=== PATIENT | female | born 1960 | race Caucasian/White ===

== ENCOUNTER 2020-12-23 09:06 | Emergency (ER) | payer MEDICARE, OTHER ==
[2020-12-23 09:27] VITALS: BP 126/78; PULSE 58
--- NOTE | 2020-12-23 10:12 | EDM.PDOC ---
ED HPI GENERAL MEDICAL PROBLEM - General Chief Complaint: Upper Extremity Injury/Pain Stated Complaint: RIGHT HAND FINGER INJURY Time Seen by Provider: 12/23/20 09:45 Source of Information: Reports: Patient History Limitations: Reports: No Limitations - History of Present Illness INITIAL COMMENTS - FREE TEXT/NARRATIVE: patient presented to the ER with a c/o right middle finger pain. started yesterday after she tried to '' flick '' a food crumb. no specific injury or trauma. no fever or chills. no similar pain in the past. she tried Tylenol with minimal relief. Onset: Sudden Duration: Hour(s): (14) Location: Reports: Upper Extremity, Right Quality: Reports: Ache Severity: Mild Treatments FILTER WASHER: Reports: Acetaminophen Right Middle Finger-Middle Pain Score (Numeric/FACES): 2 - Related Data Allergies Allergy/AdvReac Type Severity Reaction Status Date / Time lisinopril Allergy Headache Verified 12/23/20 09:28 Home Meds: Home Meds Estradiol 0.5 mg PO DAILY 10/30/14 [History] Metoprolol Succinate [Toprol XL] 50 mg PO DAILY 10/30/14 [History] Simvastatin [Zocor] 40 mg PO BEDTIME 10/30/14 [History] Venlafaxine HCl [Venlafaxine ER] 75 mg PO BEDTIME 10/30/14 [History] Losartan [Cozaar] 12/23/20 [History] Past Medical History Cardiovascular History: Reports: High Cholesterol, Hypertension Genitourinary History: Reports: None Psychiatric History: Reports: Anxiety, Depression - Past Surgical History HEENT Surgical History: Reports: Adenoidectomy, Tonsillectomy Cardiovascular Surgical History: Reports: None Female Surgical History: Reports: Breast Reduction, Hysterectomy, Tubal Ligation Other Female Surgeries/Procedures: reduction mammoplasty Musculoskeletal Surgical History: Reports: Carpal Tunnel, Knee Replacement Other Musculoskeletal Surgeries/Procedures:: right carpal tunnel Review of Systems - Review of Systems Review Of Systems: See Below Constitutional: Reports: No Symptoms Eyes: Reports: No Symptoms Nose: Reports: No Symptoms Respiratory: Reports: No Symptoms Cardiovascular: Reports: No Symptoms Musculoskeletal: Reports: No Symptoms Skin: Reports: No Symptoms ED EXAM, GENERAL - Physical Exam Exam: See Below Exam Limited By: No Limitations General Appearance: Alert, WD/WN, No Apparent Distress Eye Exam: Bilateral Eye: PERRL Respiratory/Chest: No Respiratory Distress Cardiovascular: Normal Peripheral Pulses, Regular Rate, Rhythm Extremities: Other (right middle finger knuckle - mild swelling/erythema. minimal TTP. no e/o infection. ) Neurological: Alert, Oriented Course - Vital Signs Last Recorded V/S: Last Vital Signs Temp 36.2 C 12/23/20 09:22 Pulse 58 L 12/23/20 09:22 Resp 18 12/23/20 09:22 BP 126/78 12/23/20 09:22 Pulse Ox 97 12/23/20 09:22 - Orders/Labs/Meds Orders: Active Orders 24 hr Category Date Time Status Hand Comp Min 3V Rt [CR] Stat Exams 12/23/20 09:36 Taken Ketorolac [Toradol] Med 12/23/20 10:06 Once 60 mg IM ONETIME ONE - Re-Assessments/Exams Free Text/Narrative Re-Assessment/Exam: xrays - no fracture or dislocation probably tendonitis Departure - Departure Time of Disposition: 10:10 Disposition: Home, Self-Care 01 Condition: Good Clinical Impression: Arthritis of finger - Discharge Information *PRESCRIPTION DRUG MONITORING PROGRAM REVIEWED*: Not Applicable *COPY OF PRESCRIPTION DRUG MONITORING REPORT IN PATIENT ZAC: Not Applicable Instructions: Arthritis, [id number], Tendinitis, [id number] Referrals: Rosalina Lal [employer] [employer] [Primary Care Provider] - Forms: ED Department Discharge Sepsis Event Note (ED) - Evaluation Sepsis Screening Result: No Definite Risk - Focused Exam Vital Signs: Vital Signs Temp Pulse Resp BP Pulse Ox 12/23/20 09:22 36.2 C 58 L 18 126/78 97 - Problem List & Annotations (1) Arthritis of finger SNOMED Code(s): 638436134, 210669939 Code(s): M19.049 - PRIMARY OSTEOARTHRITIS, UNSPECIFIED HAND Status: Acute Priority: Low Current Visit: Yes - Problem List Review Problem List Initiated/Reviewed/Updated: Yes - My Orders Last 24 Hours: My Active Orders 12/23/20 09:36 Hand Comp Min 3V Rt [CR] Stat 12/23/20 10:06 Ketorolac [Toradol] 60 mg IM ONETIME ONE - Assessment/Plan Last 24 Hours: My Active Orders 12/23/20 09:36 Hand Comp Min 3V Rt [CR] Stat 12/23/20 10:06 Ketorolac [Toradol] 60 mg IM ONETIME ONE Plan: - ice the affected area - Tylenol as needed for pain - rest the hand - follow up with the PCP in 1-2 weeks if symptoms didn't resolve
[2020-12-23] MEDS ORDERED: Ketorolac 60 MG/2 ML SDV ONE (10:17)
[2020-12-23] MEDS: Ketorolac 60 MG/2 ML SDV IM ONE (10:42)
--- NOTE | 2020-12-24 11:14 | CR ---
Date of Service: 12/23/20 Clinical Data: injury right RIGHT HAND: No acute fracture or dislocation. There are osteoarthritic changes involving multiple joints. No other significant findings. [id number] [facility]
== END 2020-12-23 10:43 | disposition home or self-care (01) ==
LOC: LB.ED 09:06
DX: M19.041 Primary osteoarthritis, right hand (principal); E78.00 Pure hypercholesterolemia, unspecified; I10 Essential (primary) hypertension; Z88.8 Allergy status to other drugs, medicaments and biological substances; Z79.899 Other long term (current) drug therapy
CPT/HCPCS: 73130-RT; 96372; 99283-25; J1885

== ENCOUNTER 2023-10-03 14:36 | Emergency (ER) | payer MEDICARE, OTHER ==
[2023-10-03 15:08] VITALS: BP 156/94; PULSE 75
== END 2023-10-03 16:06 | disposition home or self-care (01) ==
LOC: LB.ED 14:36
DX: S61.216A Laceration without foreign body of right little finger without damage to nail, initial encounter (principal); I10 Essential (primary) hypertension; Z90.710 Acquired absence of both cervix and uterus; Z88.8 Allergy status to other drugs, medicaments and biological substances; Z95.1 Presence of aortocoronary bypass graft; W26.8XXA Contact with other sharp object(s), not elsewhere classified, initial encounter; Y93.G1 Activity, food preparation and clean up
CPT/HCPCS: 99282